=== PATIENT | male | born 1945 | race Caucasian/White ===

== ENCOUNTER 2018-04-10 19:47 | Inpatient (IN) | payer OTHER, MEDICAID ==
[2018-04-10 21:33] LABS: WHITE BLOOD COUNT 10.2 10^3/ul (4.8-10.8)
[2018-04-10 21:33] LABS: ADD MAN DIFF? NO; BASOPHILS % 0.4 % (0.0-2.0); EOSINOPHILS # 0.1 10^3/ul (0.0-0.5); EOSINOPHILS % 1.1 % (0.0-7.0); HEMATOCRIT 37.7 % (42.0-52.0); HEMOGLOBIN 12.9 g/dl (14.0-18.0); LYMPHOCYTES # 2.7 10^3/ul (0.8-2.9); LYMPHOCYTES % 26.8 % (15.0-51.0); MEAN CORPUSCULAR HGB CONC 34.2 g/dl (32.0-37.0); MEAN CORPUSCULAR VOLUME 90.6 fl (82.0-101.0); MEAN PLATELET VOLUME 9.8 fl (7.4-10.4); MONOCYTE # 0.7 10^3/ul (0.3-0.9); MONOCYTES % 6.3 % (0.0-11.0); NEUTROPHIL # 6.7 10^3/ul (1.6-7.5); NEUTROPHILS % 64.9 % (39.0-77.0); PLATELET COUNT 259 10^3/UL (140-415); RED BLOOD COUNT 4.16 10^6/ul (4.70-6.10); RED CELL DISTRIBUTION WIDTH 12.7 % (11.5-14.5)
[2018-04-10 21:53] LABS: INR 1.05; PROTIME 13.8 Sec (11.9-14.9); PT RATIO 1.1
[2018-04-10 21:54] LABS: PARTIAL THROMBOPLASTIN TIME 32.5 Sec (23.0-35.0)
[2018-04-10 22:06] LABS: TROPONIN-I < 0.012 ng/ml (0.000-0.120)
[2018-04-10] MEDS: VANCOMYCIN 1 GM (PMX) 250 ML IVPB (22:10)
[2018-04-10] MEDS: PIPER-TAZO 3.375 GM IV (PMX) 100 ML IVPB (22:10)
[2018-04-10] MEDS: HYDROCODONE/APAP (5/325) TAB PO (22:10)
[2018-04-10 22:38] LABS: C-REACTIVE PROTEIN 0.9 mg/dl (0.0-0.9)
[2018-04-10 23:24] LABS: ERYTHROCYTE SEDIMENTATION RATE 7 mm/Hr (0-20)
[2018-04-10 23:41] LABS: ADD UMIC YES; UR AMORPHOUS CRYSTAL MANY /HPF (NONE SEEN); UR ASCORBIC ACID NEGATIVE (NEGATIVE); UR BACTERIA FEW /HPF (NONE SEEN); UR BILIRUBIN (Dip) NEGATIVE (NEGATIVE); UR BLOOD (Dip) 1+ mg/dL (NEGATIVE); UR CLARITY TURBID (CLEAR); UR COLOR YELLOW (YELLOW); UR GLUCOSE (Dip) NEGATIVE (NEGATIVE); UR KETONES (Dip) NEGATIVE (NEGATIVE); UR LEUKOCYTE ESTERASE (Dip) 3+ Leu/ul (NEGATIVE); UR MUCUS FEW /HPF (NONE SEEN); UR NITRITE (Dip) NEGATIVE (NEGATIVE); UR RBC 9 /HPF (0-5); UR SPECIFIC GRAVITY (Dip) 1.014 (1.003-1.030); UR TOTAL PROTEIN (Dip) 2+ mg/dl (NEGATIVE); UR UROBILINOGEN (Dip) NEGATIVE (NEGATIVE); UR WBC 145 /HPF (0-5)
[2018-04-10] MEDS: VANCOMYCIN IV PER PHARMACY XX (23:45)
[2018-04-11] MEDS ORDERED: HYDROCODONE/APAP (5/325) TAB PO
[2018-04-11] MEDS ORDERED: NACL 0.9% 3 ML SYG IV
[2018-04-11 03:04] LABS: ADD MAN DIFF? NO
[2018-04-11 03:06] LABS: WHITE BLOOD COUNT 8.9 10^3/ul (4.8-10.8)
[2018-04-11 03:06] LABS: BASOPHILS % 0.3 % (0.0-2.0); EOSINOPHILS # 0.2 10^3/ul (0.0-0.5); EOSINOPHILS % 1.9 % (0.0-7.0); HEMATOCRIT 33.1 % (42.0-52.0); HEMOGLOBIN 11.5 g/dl (14.0-18.0); LYMPHOCYTES # 2.9 10^3/ul (0.8-2.9); LYMPHOCYTES % 32.4 % (15.0-51.0); MEAN CORPUSCULAR HEMOGLOBIN 31.1 pg (29.0-33.0); MEAN CORPUSCULAR HGB CONC 34.7 g/dl (32.0-37.0); MEAN CORPUSCULAR VOLUME 89.5 fl (82.0-101.0); MEAN PLATELET VOLUME 9.6 fl (7.4-10.4); MONOCYTE # 0.7 10^3/ul (0.3-0.9); MONOCYTES % 8.2 % (0.0-11.0); NEUTROPHILS % 56.9 % (39.0-77.0); PLATELET COUNT 227 10^3/UL (140-415); RED CELL DISTRIBUTION WIDTH 12.7 % (11.5-14.5)
[2018-04-11 03:22] LABS: LACTIC ACID 1.3 mmol/L (0.5-2.0)
[2018-04-11 03:25] LABS: ALANINE AMINOTRANSFERASE 27 IU/L (13-69); ALBUMIN 3.4 g/dl (3.3-4.9); ALBUMIN/GLOBULIN RATIO 1.41; ALKALINE PHOSPHATASE 92 IU/L (42-121); ANION GAP 10 (5-13); ASPARTATE AMINO TRANSFERASE 22 IU/L (15-46); BILIRUBIN,INDIRECT 0.3 mg/dl (0-1.1); BILIRUBIN,TOTAL 0.3 mg/dl (0.2-1.3); BLOOD UREA NITROGEN 21 mg/dl (7-20); CALCIUM 10.7 mg/dl (8.4-10.2); CARBON DIOXIDE 27 mmol/L (21-31); CHLORIDE 100 mmol/L (97-110); CREATININE 0.95 mg/dl (0.61-1.24); GLUCOSE 100 mg/dl (70-220); MAGNESIUM 1.8 mg/dl (1.7-2.5); PHOSPHORUS 3.7 mg/dl (2.5-4.9); POTASSIUM 4.2 mmol/L (3.5-5.1); SODIUM 137 mmol/L (135-144); TOTAL PROTEIN 5.8 g/dl (6.1-8.1)
[2018-04-11] MEDS: PANTOPRAZOLE (EC) 40 MG TAB PO (05:36)
[2018-04-11] MEDS: PIPER-TAZO 3.375 GM IV (PMX) 100 ML IVPB ×3 (05:36→17:15)
[2018-04-11] MEDS: VANCOMYCIN 1 GM 250 ML IVPB ×2 (06:09→18:27)
[2018-04-11] MEDS: DONEPEZIL 10 MG TAB PO (10:09)
[2018-04-11] MEDS: MELOXICAM 7.5 MG TAB PO (10:09)
[2018-04-11] MEDS: TERBINAFINE 250 MG TAB PO ×2 (10:09→20:38)
[2018-04-11] MEDS: METOPROLOL 50 MG TAB PO ×2 (10:10→20:38)
[2018-04-11] MEDS: BENAZEPRIL 20 MG TAB PO (10:11)
[2018-04-11] MEDS: AMLODIPINE 5 MG TAB PO (10:12)
[2018-04-11] MEDS: HYDROCODONE/APAP (5/325) TAB PO (10:35)
[2018-04-12] MEDS: PIPER-TAZO 3.375 GM IV (PMX) 100 ML IVPB ×5 (00:03→23:51)
[2018-04-12 05:31] LABS: ADD MAN DIFF? NO
[2018-04-12 05:36] LABS: BASOPHIL # 0.1 10^3/ul (0.0-0.1); BASOPHILS % 0.5 % (0.0-2.0); EOSINOPHILS # 0.3 10^3/ul (0.0-0.5); EOSINOPHILS % 2.8 % (0.0-7.0); HEMATOCRIT 37.4 % (42.0-52.0); HEMOGLOBIN 12.9 g/dl (14.0-18.0); LYMPHOCYTES # 3.1 10^3/ul (0.8-2.9); LYMPHOCYTES % 32.5 % (15.0-51.0); MEAN CORPUSCULAR HEMOGLOBIN 31.3 pg (29.0-33.0); MEAN CORPUSCULAR HGB CONC 34.5 g/dl (32.0-37.0); MEAN CORPUSCULAR VOLUME 90.8 fl (82.0-101.0); MEAN PLATELET VOLUME 10.3 fl (7.4-10.4); MONOCYTE # 0.7 10^3/ul (0.3-0.9); MONOCYTES % 7.6 % (0.0-11.0); NEUTROPHIL # 5.3 10^3/ul (1.6-7.5); NEUTROPHILS % 56.1 % (39.0-77.0); PLATELET COUNT 254 10^3/UL (140-415); RED BLOOD COUNT 4.12 10^6/ul (4.70-6.10); RED CELL DISTRIBUTION WIDTH 13.2 % (11.5-14.5)
[2018-04-12 05:36] LABS: WHITE BLOOD COUNT 9.5 10^3/ul (4.8-10.8)
[2018-04-12 06:05] LABS: ANION GAP 9 (5-13); BLOOD UREA NITROGEN 17 mg/dl (7-20); CALCIUM 10.2 mg/dl (8.4-10.2); CARBON DIOXIDE 28 mmol/L (21-31); CHLORIDE 99 mmol/L (97-110); CREATININE 0.92 mg/dl (0.61-1.24); GLUCOSE 93 mg/dl (70-220); MAGNESIUM 1.8 mg/dl (1.7-2.5); POTASSIUM 4.3 mmol/L (3.5-5.1); SODIUM 136 mmol/L (135-144)
[2018-04-12] MEDS: PANTOPRAZOLE (EC) 40 MG TAB PO (06:09)
[2018-04-12] MEDS: VANCOMYCIN 1 GM 250 ML IVPB ×2 (06:09→18:16)
[2018-04-12] MEDS: TERBINAFINE 250 MG TAB PO ×2 (08:59→21:24)
[2018-04-12] MEDS: DONEPEZIL 10 MG TAB PO (08:59)
[2018-04-12] MEDS: BENAZEPRIL 20 MG TAB PO (09:00)
[2018-04-12] MEDS: METOPROLOL 50 MG TAB PO ×2 (09:00→21:24)
[2018-04-12] MEDS: AMLODIPINE 5 MG TAB PO (09:00)
[2018-04-12] MEDS: MELOXICAM 7.5 MG TAB PO (09:00)
[2018-04-12 18:01] LABS: VANCOMYCIN,TROUGH 14.8 ug/ml (10.0-20.0)
[2018-04-12] MEDS: HYDROCODONE/APAP (5/325) TAB PO (21:33)
[2018-04-13] MEDS: PIPER-TAZO 3.375 GM IV (PMX) 100 ML IVPB ×4 (05:26→23:50)
[2018-04-13] MEDS: PANTOPRAZOLE (EC) 40 MG TAB PO (05:30)
[2018-04-13 05:58] LABS: ADD MAN DIFF? NO
[2018-04-13 06:01] LABS: BASOPHILS % 0.5 % (0.0-2.0); EOSINOPHILS # 0.3 10^3/ul (0.0-0.5); EOSINOPHILS % 2.9 % (0.0-7.0); HEMATOCRIT 33.6 % (42.0-52.0); HEMOGLOBIN 11.6 g/dl (14.0-18.0); LYMPHOCYTES # 3.1 10^3/ul (0.8-2.9); LYMPHOCYTES % 35.1 % (15.0-51.0); MEAN CORPUSCULAR HEMOGLOBIN 31.1 pg (29.0-33.0); MEAN CORPUSCULAR HGB CONC 34.5 g/dl (32.0-37.0); MEAN CORPUSCULAR VOLUME 90.1 fl (82.0-101.0); MEAN PLATELET VOLUME 10.2 fl (7.4-10.4); MONOCYTE # 0.8 10^3/ul (0.3-0.9); MONOCYTES % 8.8 % (0.0-11.0); NEUTROPHIL # 4.6 10^3/ul (1.6-7.5); NEUTROPHILS % 52.4 % (39.0-77.0); PLATELET COUNT 233 10^3/UL (140-415); RED BLOOD COUNT 3.73 10^6/ul (4.70-6.10); RED CELL DISTRIBUTION WIDTH 13.1 % (11.5-14.5)
[2018-04-13 06:01] LABS: WHITE BLOOD COUNT 8.8 10^3/ul (4.8-10.8)
[2018-04-13] MEDS: VANCOMYCIN 1 GM 250 ML IVPB ×2 (06:13→18:58)
[2018-04-13 06:29] LABS: ANION GAP 7 (5-13); BLOOD UREA NITROGEN 19 mg/dl (7-20); CALCIUM 10.1 mg/dl (8.4-10.2); CARBON DIOXIDE 26 mmol/L (21-31); CHLORIDE 102 mmol/L (97-110); GLUCOSE 99 mg/dl (70-220); POTASSIUM 4.1 mmol/L (3.5-5.1); SODIUM 135 mmol/L (135-144)
[2018-04-13] MEDS: DONEPEZIL 10 MG TAB PO (08:24)
[2018-04-13] MEDS: MELOXICAM 7.5 MG TAB PO (08:24)
[2018-04-13] MEDS: TERBINAFINE 250 MG TAB PO ×2 (08:24→20:26)
[2018-04-13] MEDS: BENAZEPRIL 20 MG TAB PO (08:24)
[2018-04-13] MEDS: METOPROLOL 50 MG TAB PO (08:25)
[2018-04-13] MEDS ORDERED: LORAZEPAM 2 MG INJ IV (10:30)
[2018-04-13] MEDS ORDERED: hydrALAzine 20 MG INJ IV (10:30)
[2018-04-13] MEDS: AMLODIPINE 5 MG TAB PO (12:11)
[2018-04-13] MEDS: HYDROCODONE/APAP (5/325) TAB PO (16:16)
[2018-04-13] MEDS: METOPROLOL 25 MG TAB PO (20:26)
[2018-04-14] MEDS: HYDROCODONE/APAP (5/325) TAB PO ×3 (01:44→18:52)
[2018-04-14] MEDS: PIPER-TAZO 3.375 GM IV (PMX) 100 ML IVPB ×3 (05:12→18:19)
[2018-04-14] MEDS: VANCOMYCIN 1 GM 250 ML IVPB ×2 (05:12→18:53)
[2018-04-14] MEDS: PANTOPRAZOLE (EC) 40 MG TAB PO (05:12)
[2018-04-14 06:25] LABS: ADD MAN DIFF? NO
[2018-04-14 06:33] LABS: BASOPHIL # 0.1 10^3/ul (0.0-0.1); BASOPHILS % 0.7 % (0.0-2.0); EOSINOPHILS # 0.3 10^3/ul (0.0-0.5); EOSINOPHILS % 3.7 % (0.0-7.0); HEMATOCRIT 33.7 % (42.0-52.0); HEMOGLOBIN 11.6 g/dl (14.0-18.0); LYMPHOCYTES # 3.1 10^3/ul (0.8-2.9); LYMPHOCYTES % 34.5 % (15.0-51.0); MEAN CORPUSCULAR HEMOGLOBIN 31.1 pg (29.0-33.0); MEAN CORPUSCULAR HGB CONC 34.4 g/dl (32.0-37.0); MEAN CORPUSCULAR VOLUME 90.3 fl (82.0-101.0); MEAN PLATELET VOLUME 10.4 fl (7.4-10.4); MONOCYTE # 0.7 10^3/ul (0.3-0.9); MONOCYTES % 7.6 % (0.0-11.0); NEUTROPHIL # 4.8 10^3/ul (1.6-7.5); NEUTROPHILS % 53.1 % (39.0-77.0); PLATELET COUNT 222 10^3/UL (140-415); RED BLOOD COUNT 3.73 10^6/ul (4.70-6.10); RED CELL DISTRIBUTION WIDTH 13.2 % (11.5-14.5)
[2018-04-14 06:55] LABS: ANION GAP 7 (5-13); BLOOD UREA NITROGEN 14 mg/dl (7-20); CALCIUM 9.9 mg/dl (8.4-10.2); CARBON DIOXIDE 26 mmol/L (21-31); CHLORIDE 102 mmol/L (97-110); CREATININE 0.75 mg/dl (0.61-1.24); GLUCOSE 98 mg/dl (70-220); POTASSIUM 3.9 mmol/L (3.5-5.1); SODIUM 135 mmol/L (135-144)
[2018-04-14] MEDS: ENOXAPARIN 40 MG/0.4 ML SYG SC (08:53)
[2018-04-14] MEDS: TERBINAFINE 250 MG TAB PO ×2 (08:53→20:15)
[2018-04-14] MEDS: DONEPEZIL 10 MG TAB PO (08:53)
[2018-04-14] MEDS: AMLODIPINE 5 MG TAB PO (08:54)
[2018-04-14] MEDS: BENAZEPRIL 20 MG TAB PO (08:54)
[2018-04-14] MEDS: METOPROLOL 25 MG TAB PO ×2 (08:55→20:15)
[2018-04-14 10:55] LABS: LACTATE DEHYDROGENASE 364 IU/L (313-618)
[2018-04-14 11:27] LABS: CARCINOEMBRYONIC ANTIGEN 5.1 ng/ml (0.0-5.0)
[2018-04-14 11:30] LABS: CANCER ANTIGEN 125 < 5.5 U/ml (0.0-35.0)
[2018-04-14 11:31] LABS: CANCER ANTIGEN 19-9 81.4 U/ml (0.0-37.0)
[2018-04-14 11:31] LABS: ALPHA FETOPROTEIN 1.38 IU/L (0.00-7.21)
[2018-04-14 13:08] LABS: PROSTATE SPECIFIC ANTIGEN 1.3 ng/ml (0.0-4.0)
[2018-04-14] MEDS: ONDANSETRON 4 MG INJ IV (13:27)
[2018-04-15] MEDS: PIPER-TAZO 3.375 GM IV (PMX) 100 ML IVPB ×4 (01:45→18:00)
[2018-04-15 06:08] LABS: ADD MAN DIFF? NO
[2018-04-15] MEDS: HYDROCODONE/APAP (5/325) TAB PO (06:12)
[2018-04-15] MEDS: VANCOMYCIN 1 GM 250 ML IVPB ×2 (06:13→18:28)
[2018-04-15] MEDS: PANTOPRAZOLE (EC) 40 MG TAB PO (06:13)
[2018-04-15 06:16] LABS: BASOPHIL # 0.1 10^3/ul (0.0-0.1); BASOPHILS % 0.5 % (0.0-2.0); EOSINOPHILS # 0.2 10^3/ul (0.0-0.5); HEMATOCRIT 37.8 % (42.0-52.0); LYMPHOCYTES % 28.8 % (15.0-51.0); MEAN CORPUSCULAR HGB CONC 34.4 g/dl (32.0-37.0); MEAN PLATELET VOLUME 10.4 fl (7.4-10.4); MONOCYTE # 0.9 10^3/ul (0.3-0.9); MONOCYTES % 8.4 % (0.0-11.0); NEUTROPHIL # 6.2 10^3/ul (1.6-7.5); NEUTROPHILS % 59.3 % (39.0-77.0); PLATELET COUNT 239 10^3/UL (140-415)
[2018-04-15 06:16] LABS: WHITE BLOOD COUNT 10.5 10^3/ul (4.8-10.8)
[2018-04-15 06:58] LABS: ANION GAP 10 (5-13); BLOOD UREA NITROGEN 10 mg/dl (7-20); CALCIUM 10.6 mg/dl (8.4-10.2); CARBON DIOXIDE 29 mmol/L (21-31); CHLORIDE 97 mmol/L (97-110); CREATININE 0.88 mg/dl (0.61-1.24); GLUCOSE 90 mg/dl (70-220); MAGNESIUM 1.7 mg/dl (1.7-2.5); POTASSIUM 3.9 mmol/L (3.5-5.1); SODIUM 136 mmol/L (135-144)
[2018-04-15] MEDS: AMLODIPINE 5 MG TAB PO (09:00)
[2018-04-15] MEDS: BENAZEPRIL 20 MG TAB PO (09:00)
[2018-04-15] MEDS: METOPROLOL 25 MG TAB PO ×2 (09:00→20:53)
[2018-04-15] MEDS: TERBINAFINE 250 MG TAB PO ×2 (09:21→20:53)
[2018-04-15] MEDS: DONEPEZIL 10 MG TAB PO (09:21)
[2018-04-15] MEDS: ENOXAPARIN 40 MG/0.4 ML SYG SC (09:25)
[2018-04-15 17:39] LABS: VANCOMYCIN,TROUGH 19.6 ug/ml (10.0-20.0)
[2018-04-16] MEDS: PIPER-TAZO 3.375 GM IV (PMX) 100 ML IVPB ×5 (06:23→23:24)
[2018-04-16] MEDS: PANTOPRAZOLE (EC) 40 MG TAB PO (06:23)
[2018-04-16] MEDS: ENOXAPARIN 40 MG/0.4 ML SYG SC (08:28)
[2018-04-16] MEDS: METOPROLOL 25 MG TAB PO ×2 (08:30→20:16)
[2018-04-16] MEDS: TERBINAFINE 250 MG TAB PO ×2 (08:31→20:16)
[2018-04-16] MEDS: BENAZEPRIL 20 MG TAB PO (08:31)
[2018-04-16] MEDS: AMLODIPINE 5 MG TAB PO (08:31)
[2018-04-16] MEDS: DONEPEZIL 10 MG TAB PO (08:31)
[2018-04-16] MEDS: VANCOMYCIN 750 MG in SOD CHLORIDE 0.9% 150 ML IVPB (13:24)
[2018-04-16] MEDS: HYDROCODONE/APAP (5/325) TAB PO (18:28)
[2018-04-17] MEDS: VANCOMYCIN 750 MG in SOD CHLORIDE 0.9% 150 ML IVPB ×2 (00:10→12:10)
[2018-04-17] MEDS: PIPER-TAZO 3.375 GM IV (PMX) 100 ML IVPB ×3 (05:30→17:25)
[2018-04-17] MEDS: PANTOPRAZOLE (EC) 40 MG TAB PO (05:30)
[2018-04-17] MEDS: DONEPEZIL 10 MG TAB PO (08:31)
[2018-04-17] MEDS: METOPROLOL 25 MG TAB PO ×2 (08:31→21:10)
[2018-04-17] MEDS: TERBINAFINE 250 MG TAB PO ×2 (08:31→21:10)
[2018-04-17] MEDS: BENAZEPRIL 20 MG TAB PO (08:31)
[2018-04-17] MEDS: AMLODIPINE 5 MG TAB PO (08:31)
[2018-04-17] MEDS: ENOXAPARIN 40 MG/0.4 ML SYG SC (08:32)
[2018-04-17 08:38] LABS: BLOOD UREA NITROGEN 15 mg/dl (7-20)
[2018-04-17 08:38] LABS: CREATININE 0.91 mg/dl (0.61-1.24)
[2018-04-17 09:33] LABS: IMMUNOGLOBULIN G 542 mg/dl (700-1600); IMMUNOGLOBULIN M 64 mg/dl (40-230)
[2018-04-17 09:33] LABS: IMMUNOGLOBULIN A 127 mg/dl (70-400)
[2018-04-17] MEDS: ACETAMINOPHEN 325 MG TAB PO (11:29)
[2018-04-17 14:14] LABS: MAGNESIUM 1.9 mg/dl (1.7-2.5)
[2018-04-18] MEDS: PIPER-TAZO 3.375 GM IV (PMX) 100 ML IVPB ×3 (00:36→11:04)
[2018-04-18] MEDS: PANTOPRAZOLE (EC) 40 MG TAB PO (05:43)
[2018-04-18 05:59] LABS: ADD MAN DIFF? NO
[2018-04-18 06:02] LABS: BASOPHIL # 0.1 10^3/ul (0.0-0.1); BASOPHILS % 0.3 % (0.0-2.0); EOSINOPHILS % 0.2 % (0.0-7.0); HEMATOCRIT 33.5 % (42.0-52.0); HEMOGLOBIN 11.6 g/dl (14.0-18.0); LYMPHOCYTES # 2.4 10^3/ul (0.8-2.9); LYMPHOCYTES % 15.7 % (15.0-51.0); MEAN CORPUSCULAR HEMOGLOBIN 31.4 pg (29.0-33.0); MEAN CORPUSCULAR HGB CONC 34.6 g/dl (32.0-37.0); MEAN CORPUSCULAR VOLUME 90.8 fl (82.0-101.0); MEAN PLATELET VOLUME 10.2 fl (7.4-10.4); MONOCYTE # 0.9 10^3/ul (0.3-0.9); MONOCYTES % 5.6 % (0.0-11.0); NEUTROPHIL # 11.8 10^3/ul (1.6-7.5); NEUTROPHILS % 77.7 % (39.0-77.0); PLATELET COUNT 216 10^3/UL (140-415); RED BLOOD COUNT 3.69 10^6/ul (4.70-6.10); RED CELL DISTRIBUTION WIDTH 13.9 % (11.5-14.5)
[2018-04-18 06:02] LABS: WHITE BLOOD COUNT 15.2 10^3/ul (4.8-10.8)
[2018-04-18 06:46] LABS: ANION GAP 11 (5-13); BLOOD UREA NITROGEN 18 mg/dl (7-20); CARBON DIOXIDE 29 mmol/L (21-31); CHLORIDE 101 mmol/L (97-110); CREATININE 0.87 mg/dl (0.61-1.24); GLUCOSE 101 mg/dl (70-220); MAGNESIUM 1.8 mg/dl (1.7-2.5); POTASSIUM 3.4 mmol/L (3.5-5.1); SODIUM 141 mmol/L (135-144)
[2018-04-18] MEDS: DONEPEZIL 10 MG TAB PO (08:28)
[2018-04-18] MEDS: BENAZEPRIL 20 MG TAB PO (08:29)
[2018-04-18] MEDS: AMLODIPINE 5 MG TAB PO (08:29)
[2018-04-18] MEDS: METOPROLOL 25 MG TAB PO ×2 (08:29→20:15)
[2018-04-18] MEDS: TERBINAFINE 250 MG TAB PO (08:29)
[2018-04-18] MEDS: ENOXAPARIN 40 MG/0.4 ML SYG SC (08:30)
[2018-04-18] MEDS ORDERED: POTASSIUM CHLORIDE 50 ML IVPB (10:00)
[2018-04-18] MEDS: MAGNESIUM SULFATE 1 GM/D5W 100 ML IVPB (11:37)
[2018-04-18] MEDS: POTASSIUM CHLORIDE 20 MEQ/SW 100 ML IVPB (13:07)
[2018-04-18] MEDS ORDERED: VANCOMYCIN IV PER PHARMACY XX (14:30)
[2018-04-18] MEDS: POTASSIUM CHLORIDE (SR) 20 MEQ TAB PO ×2 (15:32→15:33)
[2018-04-18] MEDS: VANCOMYCIN 750 MG in SOD CHLORIDE 0.9% 150 ML IVPB (16:45)
[2018-04-18] MEDS: VANCOMYCIN HCL 250 MG/5ML POSYG PO ×2 (16:45→23:34)
[2018-04-18] MEDS: LACTOBACILLUS RHAMNOSUS CAP PO (20:14)
[2018-04-18] MEDS: HYDROCODONE/APAP (5/325) TAB PO (20:15)
[2018-04-19] MEDS: ACETAMINOPHEN 325 MG TAB PO (04:05)
[2018-04-19] MEDS: VANCOMYCIN 750 MG in SOD CHLORIDE 0.9% 150 ML IVPB (04:08)
[2018-04-19] MEDS: PANTOPRAZOLE (EC) 40 MG TAB PO (06:00)
[2018-04-19] MEDS: VANCOMYCIN HCL 250 MG/5ML POSYG PO ×2 (06:00→12:05)
[2018-04-19 07:20] LABS: ADD MAN DIFF? NO
[2018-04-19 07:24] LABS: WHITE BLOOD COUNT 12.8 10^3/ul (4.8-10.8)
[2018-04-19 07:24] LABS: BASOPHILS % 0.3 % (0.0-2.0); EOSINOPHILS # 0.1 10^3/ul (0.0-0.5); EOSINOPHILS % 0.6 % (0.0-7.0); HEMATOCRIT 31.5 % (42.0-52.0); HEMOGLOBIN 10.6 g/dl (14.0-18.0); LYMPHOCYTES # 2.1 10^3/ul (0.8-2.9); LYMPHOCYTES % 16.1 % (15.0-51.0); MEAN CORPUSCULAR HGB CONC 33.7 g/dl (32.0-37.0); MEAN CORPUSCULAR VOLUME 92.1 fl (82.0-101.0); MEAN PLATELET VOLUME 10.3 fl (7.4-10.4); MONOCYTE # 0.8 10^3/ul (0.3-0.9); MONOCYTES % 6.6 % (0.0-11.0); NEUTROPHIL # 9.7 10^3/ul (1.6-7.5); NEUTROPHILS % 75.9 % (39.0-77.0); PLATELET COUNT 192 10^3/UL (140-415); RED BLOOD COUNT 3.42 10^6/ul (4.70-6.10); RED CELL DISTRIBUTION WIDTH 13.9 % (11.5-14.5)
[2018-04-19 07:48] LABS: MAGNESIUM 1.9 mg/dl (1.7-2.5)
[2018-04-19 07:54] LABS: ANION GAP 5 (5-13); BLOOD UREA NITROGEN 18 mg/dl (7-20); CALCIUM 11.1 mg/dl (8.4-10.2); CARBON DIOXIDE 30 mmol/L (21-31); CHLORIDE 102 mmol/L (97-110); CREATININE 0.79 mg/dl (0.61-1.24); GLUCOSE 102 mg/dl (70-220); POTASSIUM 3.7 mmol/L (3.5-5.1); SODIUM 137 mmol/L (135-144)
[2018-04-19 07:55] LABS: ALBUMIN 2.8 g/dl (3.3-4.9)
[2018-04-19 07:55] LABS: PHOSPHORUS 2.9 mg/dl (2.5-4.9)
[2018-04-19] MEDS: LACTOBACILLUS RHAMNOSUS CAP PO (08:13)
[2018-04-19] MEDS: BENAZEPRIL 20 MG TAB PO (08:14)
[2018-04-19] MEDS: METOPROLOL 25 MG TAB PO (08:15)
[2018-04-19] MEDS: AMLODIPINE 5 MG TAB PO (08:15)
[2018-04-19] MEDS: DONEPEZIL 10 MG TAB PO (08:16)
[2018-04-19] MEDS: ENOXAPARIN 40 MG/0.4 ML SYG SC (08:17)
[2018-04-19 09:24] LABS: IONIZED CALCIUM 1.5 mmol/L (1.1-1.4)
[2018-04-20 22:53] LABS: ALPHA-1-GLOBULINS 0.4 g/dL (0.2-0.3); ALPHA-2-GLOBULINS 0.7 g/dL (0.5-0.9); BETA 2 GLOBULINS 0.2 g/dL (0.2-0.5); BETA GLOBULINS 0.3 g/dL (0.4-0.6); GAMMA GLOBULINS 0.5 g/dL (0.8-1.7)
== END 2018-04-19 19:20 | DRG 478 ==
LOC: PP2 22:54 → E/R 19:47
PROVIDERS: Internal Medicine
PROC: 0PBF3ZX Excision of Right Humeral Shaft, Percutaneous Approach, Diagnostic (ICD-10-PCS; principal; 2018-04-14)
DX: S42.494 Other nondisplaced fracture of lower end of right humerus (principal); L03.111 Cellulitis of right axilla; N39.0 Urinary tract infection, site not specified; A04.72 Enterocolitis due to Clostridium difficile, not specified as recurrent; L89.899 Pressure ulcer of other site, unspecified stage; L08.89 Other specified local infections of the skin and subcutaneous tissue; B95.2 Enterococcus as the cause of diseases classified elsewhere; B96.89 Other specified bacterial agents as the cause of diseases classified elsewhere; Z91.81 History of falling; F03.90 Unspecified dementia, unspecified severity, without behavioral disturbance, psychotic disturbance, mood disturbance, and anxiety; R97.0 Elevated carcinoembryonic antigen [CEA]; I10 Essential (primary) hypertension
CPT/HCPCS: 36415; 71045; 73060-RT; 73200; 73218; 77012; 78306; 80048; 80053; 80202; 81001; 82040; 82105; 82330; 82378; 82565; 82784; 83605; 83615; 83735; 84100; 84153; 84154; 84155; 84165; 84484; 84520; 85025; 85610; 85651; 85730; 86140; 86301; 86304; 86320; 86325; 87040; 87070; 87075; 87081; 87086; 87102; 87116; 88305; 88313; 93005; 93971; 96365; 96368; 97161; 97166; 99285-25; A9503